=== PATIENT | female | born 1975 | race Hispanic/Latino ===

== ENCOUNTER 2023-11-09 08:46 | Day surgery (SDC) | payer MEDICARE ==
[2023-11-09] VITALS (11 sets, daily range): BP systolic 124–152; BP diastolic 63–90; PULSE 52–74; RESP 14–16
[~2023-11-09] VITALS: Ht 162.6 cm; Wt 49.9 kg
[2023-11-09] MEDS ORDERED: IBUP-2784 PO (10:03)
[2023-11-09] MEDS ORDERED: MIDAZOLAM HCL 1 MG/ML 2ML VIAL ONE (10:06)
[2023-11-09] MEDS: 0.9%NACL 1000ML 1,000 ML IV ONE (10:08)
[2023-11-09] MEDS ORDERED: PROPOFOL 10 MG/ML 20ML VIAL IV ONE (12:35)
== END 2023-11-09 14:15 | disposition home or self-care (01) ==
LOC: DAH 08:46 → ENDO 08:46
PROVIDERS: ATTEND Internal Medicine Gastroenterology
DX: K21.9 Gastro-esophageal reflux disease without esophagitis (principal); R13.10 Dysphagia, unspecified; K29.70 Gastritis, unspecified, without bleeding; I10 Essential (primary) hypertension; K14.6 Glossodynia; Z85.3 Personal history of malignant neoplasm of breast; Z90.12 Acquired absence of left breast and nipple
CPT/HCPCS: 81025; 82948 ×2; 43239; J7030 ×2; J2250; J2704; A4620; A4215 ×2; A4223; A7002; A4222; A4221; A4663; A4606; J3490